=== PATIENT | male | born 1965 | race Caucasian/White ===

== ENCOUNTER 2021-11-04 15:50 | Inpatient (IN) ==
[2021-11-04 16:38] LABS: Basophils # (auto) 0.04 K/uL (0-0.2); Basophils % (auto) 0.3 %; Eosinophils # (auto) 0.08 K/uL (0-0.50); Eosinophils % (auto) 0.6 %; Hematocrit (blood only) 46.2 % (40.1-51.0); Hemoglobin 15.2 g/dl (14.0-18.0); Immature Granulocytes # (auto) 0.06 K/uL (0.00-0.02); Immature Granulocytes % (auto) 0.5 %; Lymphocytes # (auto) 1.44 K/uL (1.2-3.4); Lymphocytes % (auto) 10.8 %; Mean Corpuscular Hgb Conc 32.9 g/dL (32.0-36.0); Mean Corpuscular Volume 91.1 fL (80.0-100.0); Mean Platelet Volume 9.8 fL (9.4-12.4); Monocytes # (auto) 0.72 K/uL (0.24-0.82); Monocytes % (auto) 5.4 %; Neutrophils # (auto) 10.97 K/uL (1.4-6.5); Neutrophils % (auto) 82.4 %; Platelet Count 335 K/uL (130-400); RDW Standard Deviation 46.7 fL (36.4-46.3); Red Blood Count 5.07 M/uL (4.63-6.08); White Blood Count 13.31 K/ul (4.8-10.8)
[2021-11-04 17:04] LABS: Albumin Globulin Ratio 1.2 (0.9-2); Albumin Level 4.3 gm/dl (3.4-5.0); BUN Creatinine Ratio 15.1 (10-20); Bilirubin,Total 0.7 mg/dl (0.2-1.0); Calcium 9.4 mg/dl (8.5-10.1); Creatinine Clr Calc Pharmacy 114.2 ml/min; Est GFR (African American) 106.7 ml/min; Est GFR (Non-African American) 92.1 ml/min; Globulin 3.5 gm/dl (2.5-4.0); Potassium 3.8 mmol/L (3.5-5.1); Total Protein 7.8 gm/dl (6.0-8.3)
[2021-11-04] MEDS ORDERED: MoRPHine SULFATE 4 MG/ML 1 ML CARP\\VIAL IV STA ×2 (19:15→21:50)
[2021-11-04] MEDS ORDERED: SODIUM CHLORIDE 0.9% 1000ML 1,000 ML IV ONE (19:15)
[2021-11-04] MEDS ORDERED: ONDANSETRON INJ 2 MG/ML 2 ML VIAL IV STA ×2 (19:15→22:06)
--- NOTE | 2021-11-04 19:31 | Emergency Department Note ---
Impression & Plan Abdominal pain, Acute cholecystitis, Leukocytosis ED Provider Note NAME: SARAVANAN DANIELS AGE: 56 SEX: M : 1965 ARRIVES VIA: Walk-In INFORMANT: Patient ED PROVIDER(S): Rc Go DO CHIEF COMPLAINT: abdominal pain HPI: Patient is a 56-year-old male who presents ER for lower abdominal pain associate with nausea, vomiting this morning. Started after he ate a chicken salad at [employer] last night. Pain is an 8 out of 10. Denies any dysuria, urgency, or frequency. No previous abdominal pains. No other exacerbating or remitting factors. He has not been eating and drinking secondary to the pain and nausea. ROS: See above HPI for pertinent positives & negatives. A total of 10 systems reviewed and were otherwise negative. PAST MEDICAL HISTORY:See Below PAST SURGICAL HISTORY:See Below FAMILY HISTORY:See Below SOCIAL HISTORY:See Below HOME MEDICATIONS:See Below ALLERGIES:See Below VITALS:See Below PHYSICAL EXAMINATION: GENERAL: Sitting up in bed, alert, well appearing, well nourished, no distress, non-toxic EYE EXAM: normal conjunctiva. OROPHARYNX: no exudate, no erythema, lips, buccal mucosa, and tongue normal and mucous membranes are moist NECK: supple, no nuchal rigidity, no adenopathy, non-tender LUNGS: Clear to auscultation. Normal chest wall mechanics HEART: no murmurs, S1 normal and S2 normal ABDOMEN: abdomen soft, diffuse tenderness, normo-active bowel sounds, no masses, no rebound or guarding. UPPER EXTREMITIES: upper extremities are grossly normal. LOWER EXTREMITIES: No pitting edema. NEURO EXAM: Normal sensorium, cranial nerves II-XII grossly intact, normal speech, no gross weakness of arms, no gross weakness of legs. MEDICAL DECISION MAKING: Patient is a 56-year-old male who presents ER for abdominal pain. IV was established blood work was obtained. Labs show a leukocytosis of 13,000. No significant anemia. BMP on LFTs bilirubin was unremarkable. UA was clean. Did show ketones suggesting dehydration. CT abdomen pelvis confirms acute cholecystitis. He was given IV fluids and 2 doses of morphine as well as IV Zofran. Discussed with Dr. Khanna for further evaluation and admission. Triage Nursing notes reviewed. Limited review of prior medical records performed Vital Signs: reviewed and remarkable for no significant abnormalities Differential diagnosis: Differential diagnoses includes but is not limited to gastritis, peptic ulcer disease, GERD, gallbladder disease, pancreatitis, small bowel obstruction, acute coronary syndrome, pericarditis, ischemic bowel, irritable bowel disease, irritable bowel syndrome, appendicitis, diverticulitis, malignancy, hernia, urinary tract infection, torsion, perforation, trauma, infectious. ER treatment provided: See below Diagnostics interpreted by me: ECG: none Cardiac Monitoring: An order was placed for continuous cardiac monitoring. The monitor shows a rate of 80 with sinus rhythm. Laboratory studies: As stated above and show below. Imaging studies: CT abd/pelvis is unremarkable Consultation(s): As described above discussed with Dr. Khanna for further evaluation and admission Procedures: none Critical Care: None Past Med/Surg History Social History Smoking Status: Current every day smoker Feels Safe at Home: Yes Allergies Allergies Allergy/AdvReac Type Severity Reaction Status Date / Time No Known Allergies Allergy Mild Unverified 11/04/21 19:25 Home Meds Home Medications Medication Instructions Recorded Confirmed No Known Home Medications 11/04/21 11/04/21 Results & Data (ED) Vital Signs Vital Signs - 24 hr 11/04/21 15:52 11/04/21 19:51 Temperature 36.6 C Temperature Source Temporal Artery Scan Pulse Rate 79 Respiratory Rate 18 Respiratory Effort / Characteristics Non-Labored Respiratory Depth Normal Blood Pressure 154/94 H Blood Pressure Mean 114 Pulse Oximetry 96 Oxygen Delivery Method Room Air Sepsis Recent Fever Within 48 Hours No Sepsis New/Unexplained Change in Mental Status No Sepsis Action Taken by Nursing No Action Required Laboratory Data Result diagrams: 11/04/21 16:19 11/04/21 16:19 Lab Results 11/04/21 11/04/21 11/04/21 Range/Units 16:19 16:19 20:40 WBC 13.31 H (4.8-10.8) K/ul RBC 5.07 (4.63-6.08) M/uL Hgb 15.2 (14.0-18.0) g/dl Hct 46.2 (40.1-51.0) % MCV 91.1 (80.0-100.0) fL MCH 30.0 (25.0-34.0) pg MCHC 32.9 (32.0-36.0) g/dL RDW Std Deviation 46.7 H (36.4-46.3) fL RDW Coeff of Bisi 14.0 (11.5-14.5) % Plt Count 335 (130-400) K/uL MPV 9.8 (9.4-12.4) fL Immature Gran % (Auto) 0.5 % Neut % (Auto) 82.4 % Lymph % (Auto) 10.8 % [place] % (Auto) 5.4 % Eos % (Auto) 0.6 % Baso % (Auto) 0.3 % Neut # (Auto) 10.97 H (1.4-6.5) K/uL Lymph # (Auto) 1.44 (1.2-3.4) K/uL [place] # (Auto) 0.72 (0.24-0.82) K/uL Eos # (Auto) 0.08 (0-0.50) K/uL Baso # (Auto) 0.04 (0-0.2) K/uL Immature Gran # (Auto) 0.06 H (0.00-0.02) K/uL Sodium 138 (136-145) mmol/L Potassium 3.8 (3.5-5.1) mmol/L Chloride 104 (98-107) mmol/L Carbon Dioxide 26 (21-32) mmol/L Anion Gap 8 (3-11) BUN 14 (6-23) mg/dl Creatinine 0.93 (0.6-1.4) mg/dl Est Cr Clr Drug Dosing 114.2 ml/min Est GFR ( Amer) 106.7 ml/min Est GFR (Non-Af Amer) 92.1 ml/min BUN/Creatinine Ratio 15.1 (10-20) Glucose 99 (70-99(Fasting)) mg/dl Calcium 9.4 (8.5-10.1) mg/dl Total Bilirubin 0.7 (0.2-1.0) mg/dl AST 25 (13-39) U/L ALT 31 (7-52) U/L Alkaline Phosphatase 93 (34-104) U/L Total Protein 7.8 (6.0-8.3) gm/dl Albumin 4.3 (3.4-5.0) gm/dl Globulin 3.5 (2.5-4.0) gm/dl Albumin/Globulin Ratio 1.2 (0.9-2) Urine Color Yellow Urine Appearance Clear (Clear) Urine pH 7.0 (4.5-7.5) Ur Specific [place] 1.008 (1.000-1.030) Urine Protein Negative (Negative) Urine Glucose (UA) Negative (Negative) Urine Ketones 1+ H (Negative) Urine Blood Negative (Negative) Urine Nitrite Negative (Negative) Urine Bilirubin Negative (Negative) Urine Urobilinogen Negative (Negative) Ur Leukocyte Esterase Negative (Negative) Administered Medications Discontinued Medications Sodium Chloride (Nss 1000ml) 1,000 mls @ 999 mls/hr IV .Q1H1M ONE Stop: 11/04/21 20:15 Last Admin: 11/04/21 19:31 Dose: 999 mls/hr Documented By: RACHELLE Ioversol (Optiray 320 100ml) 92 ml IV ONCE ONE Stop: 11/04/21 20:30 Last Admin: 11/04/21 20:29 Dose: 92 ml Documented By: ISREAL Morphine Sulfate (Morphine Sulfate 4 Mg/Ml 1 Ml Carp\Vial) 4 mg IV NOW STA Stop: 11/04/21 19:16 Last Admin: 11/04/21 19:30 Dose: 4 mg Documented By: RACHELLE Ondansetron HCl (Ondansetron Inj 2 Mg/Ml 2 Ml Vial) 4 mg IV NOW STA Stop: 11/04/21 19:16 Last Admin: 11/04/21 19:30 Dose: 4 mg Documented By: RACHELLE Imaging Data Radiologist's Impression: Abdomen/Pelvis CT 11/04/21 00:00 CT OF THE ABDOMEN AND PELVIS WITH CONTRAST CLINICAL HISTORY: Lower abdominal pain. COMPARISON STUDY: None. TECHNIQUE: Following IV administration of 92 mL of Optiray, axial images of the abdomen and pelvis were obtained from the lung bases to the proximal femurs. Images were reviewed in the axial, sagittal, and coronal planes. IV contrast was administered without complication. Automated exposure control was utilized for the study. A dose lowering technique was utilized adhering to the principles of ALARA. CT DOSE: 1017.88 mGy.cm FINDINGS: No pneumatosis, free air or portal venous gas is present. A small hiatal hernia is present. There is mild intrahepatic biliary ductal dilatation. Caliber of the common bile duct is normal. 2.1 cm gallstone within the gallbladder neck is noted. There is moderate gallbladder wall thickening. The gallbladder is distended. There is mild stranding within the juan carlos hepatis. The spleen, adrenal glands, kidneys and pancreas are unremarkable. There is no evidence for a bowel obstruction. The appendix is normal. Trace fluid within pelvis is noted. No lymphadenopathy is present. There is apparent mild stranding adjacent to several vessels within the omentum. IMPRESSION: 1. Findings highly suggestive of acute cholecystitis. 2. Mild intrahepatic biliary ductal dilatation with normal caliber common bile duct. This could be correlated with liver function tests. 3. No bowel obstruction. No bowel wall thickening. Normal appendix. 4. Apparent mild stranding adjacent to several vessels within the omentum. This finding may be chronic and is of questionable significance. A follow-up CT of the abdomen in 6 months to ensure stability is recommended. ACT 112: Negative or not required by law. Electronically signed by: Nicholas Eisenberg M.D. 11/04/2021 8:50 PM Discharge Plan Visit Data Chief Complaint: Illness Stated Complaint: POSSIBLE FOOD POISONING ED Provider: Rc Go Discharge Problem: Abdominal pain, Acute cholecystitis, Leukocytosis Forms Stand Alone Forms: My [facility] Prescriptions Prescriptions: No Action No Known Home Medications Referrals Referrals: PCP,NO [Primary Care Provider] -
[2021-11-04] MEDS ORDERED: OPTIRAY 320 100ml IV ONE (20:29)
--- NOTE | 2021-11-04 20:52 | CT Scan Report ---
CT OF THE ABDOMEN AND PELVIS WITH CONTRAST CLINICAL HISTORY: Lower abdominal pain. COMPARISON STUDY: None. TECHNIQUE: Following IV administration of 92 mL of Optiray, axial images of the abdomen and pelvis we re obtained from the lung bases to the proximal femurs. Images were reviewed in the axial, sagittal, and coronal planes. IV contrast was administered without complication. Automated exposure control wa s utilized for the study. A dose lowering technique was utilized adhering to the principles of ALARA . CT DOSE: 1017.88 mGy.cm FINDINGS: No pneumatosis, free air or portal venous gas is present. A small hiatal hernia is present. There is mild intrahepatic biliary ductal dilatation. Caliber of the common bile duct is normal. 2.1 cm gallstone within the gallbladder neck is noted. There is moderate gallbladder wall thickening. Th e gallbladder is distended. There is mild stranding within the juan carlos hepatis. The spleen, adrenal gla nds, kidneys and pancreas are unremarkable. There is no evidence for a bowel obstruction. The appendi x is normal. Trace fluid within pelvis is noted. No lymphadenopathy is present. There is apparent mil d stranding adjacent to several vessels within the omentum. IMPRESSION: 1. Findings highly suggestive of acute cholecystitis. 2. Mild intrahepatic biliary ductal dilatation with normal caliber common bile duct. This could be co rrelated with liver function tests. 3. No bowel obstruction. No bowel wall thickening. Normal appendix. 4. Apparent mild stranding adjacent to several vessels within the omentum. This finding may be chroni c and is of questionable significance. A follow-up CT of the abdomen in 6 months to ensure stability is recommended. ACT 112: Negative or not required by law. Electronically signed by: Nicholas Eisenberg M.D. 11/04/2021 8:50 PM
[2021-11-04 21:19] LABS: Appearance Urine Clear (Clear); Bilirubin Urine Negative (Negative); Blood Urine Negative (Negative); Color Urine Yellow; Glucose Urine UA Negative (Negative); Ketones Urine 1+ (Negative); Leukocyte Esterase Urine Negative (Negative); Nitrite Urine Negative (Negative); Protein Urine Negative (Negative); Specific Gravity Urine 1.008 (1.000-1.030); Urobilinogen Urine Negative (Negative)
--- NOTE | 2021-11-04 22:04 | History & Physical Report ---
Date of Service November 04, 2021 Assessment & Plan (1) Acute cholecystitis: Plan: IVF IV abx will need lap scottie this hospitalization Present on Admission?: Yes History of Present Illness Primary Care Provider: NO PCP This is a 56-year-old male who presented ED for abdominal pain associated with nausea and vomiting which began today. He denies fever or chills. He has no dysuria or other urinary symptoms. He has never had the pain previously. He has not been eating and drinking secondary to the pain and nausea. A CT scan shows acute cholecystitis. Allergies Allergy/AdvReac Type Severity Reaction Status Date / Time No Known Allergies Allergy Mild Unverified 11/04/21 19:25 Home Medications Medication Instructions Recorded Confirmed Type No Known Home Medications 11/04/21 11/04/21 History Past Med/Surg History Social History Smoking Status: Current every day smoker Feels Safe at Home: Yes Review of Systems Constitutional: + anorexia; no fever, no chills and no sweats Eyes: no problem reported Ear, Nose, Mouth, Throat: no problem reported Respiratory: no cough and no dyspnea Cardiovascular: no chest pain Gastrointestinal: + abdominal pain, + nausea and + vomiting; no change in bowel habits Genitourinary: no dysuria Musculoskeletal: no back pain and no neck pain Integumentary: no rash and no lesions Neurologic: no localized weakness and no generalized weakness Psychiatric: no behavioral changes Physical Exam Constitutional: WD/WN, vitals as above Eyes: PERRL, conjunctivae normal, anicteric sclerae ENMT: external ear and nose normal, oropharynx normal Neck: trachea midline Respiratory: normal respiratory effort, lungs clear to auscultation Cardiovascular: RRR, no murmur, no edema Gastrointestinal (Abdomen): Inspection/Auscultation: abdomen normal to inspection and normal bowel sounds; abdomen not distended and no abdominal surgical scar Percussion/Palpation: + abdomen tender and abdomen soft; no guarding and abdomen not rigid Musculoskeletal: Head/Neck/Chest: normocephalic and head atraumatic Skin: no rashes, warm and dry Results & Data Results & Data ([facility]) Vital Signs (Past 12 Hours) Vital Signs Temp Pulse Resp BP Pulse Ox O2 Del Method 11/04/21 15:52 36.6 C 79 18 154/94 H 96 Room Air Diagnostic Findings CT OF THE ABDOMEN AND PELVIS WITH CONTRAST CLINICAL HISTORY: Lower abdominal pain. COMPARISON STUDY: None. TECHNIQUE: Following IV administration of 92 mL of Optiray, axial images of the abdomen and pelvis were obtained from the lung bases to the proximal femurs. Images were reviewed in the axial, sagittal, and coronal planes. IV contrast was administered without complication. Automated exposure control was utilized for the study. A dose lowering technique was utilized adhering to the principles of ALARA. CT DOSE: 1017.88 mGy.cm FINDINGS: No pneumatosis, free air or portal venous gas is present. A small hiatal hernia is present. There is mild intrahepatic biliary ductal dilatation. Caliber of the common bile duct is normal. 2.1 cm gallstone within the gallbladder neck is noted. There is moderate gallbladder wall thickening. The gallbladder is distended. There is mild stranding within the juan carlos hepatis. The spleen, adrenal glands, kidneys and pancreas are unremarkable. There is no evidence for a bowel obstruction. The appendix is normal. Trace fluid within pelvis is noted. No lymphadenopathy is present. There is apparent mild stranding adjacent to several vessels within the omentum. IMPRESSION: 1. Findings highly suggestive of acute cholecystitis. 2. Mild intrahepatic biliary ductal dilatation with normal caliber common bile duct. This could be correlated with liver function tests. 3. No bowel obstruction. No bowel wall thickening. Normal appendix. 4. Apparent mild stranding adjacent to several vessels within the omentum. This finding may be chronic and is of questionable significance. A follow-up CT of the abdomen in 6 months to ensure stability is recommended. Code Status & VTE Plan Code Status Full Code VTE Prophylaxis Plan VTE Prophylaxis will be ordered: Yes
[2021-11-04] MEDS ORDERED: IBUPROFEN 200 MG TAB PO PRN (22:06)
[2021-11-04] MEDS ORDERED: MoRPHine SULFATE 2 MG/ML CARP IV PRN (22:06)
[2021-11-04] MEDS ORDERED: MoRPHine SULFATE 4 MG/ML 1 ML CARP\\VIAL IV PRN (22:06)
[2021-11-04] MEDS ORDERED: oxyCODONE/ACETAMINOPHEN 5mg/325mg TAB PO PRN ×2 (22:06)
[2021-11-04] MEDS ORDERED: ACETAMINOPHEN 325 MG TAB PO PRN (22:06)
[2021-11-04] MEDS ORDERED: PIPERACILLIN/TAZOBACTAM 4.5 GM/120 ML BAG IV STA (22:17)
[2021-11-05] MEDS: LACTATED RINGER'S 1,000 ML IV SCH ×3 (00:18→21:38)
[2021-11-05] MEDS: PIPERACILLIN/TAZOBACTAM 3.375 GM in DEXTROSE 5% 100 ML IV SCH ×3 (03:52→19:11)
[2021-11-05] MEDS ORDERED: ONDANSETRON INJ 2 MG/ML 2 ML VIAL IV PRN (12:49)
[2021-11-05] MEDS ORDERED: fentaNYL citrate 100 MCG/2 ML VIAL IV PRN (12:49)
[2021-11-05] MEDS ORDERED: KETOROLAC 30 MG/ML VIAL IV PRN (12:49)
[2021-11-05] MEDS ORDERED: ATROPINE SULFATE 0.1 MG/ML 10ML SYR IV PRN (12:49)
[2021-11-05] MEDS ORDERED: PROMETHAZINE HCL 6.25 MG in SODIUM CHLORIDE 0.9% 50 ML IV PRN (12:49)
--- NOTE | 2021-11-05 12:49 | Anesthesiology Consultation ---
Date of Service November 05, 2021 Assessment & Plan (1) Encounter for pre-operative examination: Chart Review Chart Review: Acceptable Risk for Surgery History Surgery Operation Date: 11/05/21 13:15 Proposed Procedures p Laparoscopic Cholecystectomy - Prince Brandt MD Height/Weight Height: 6 ft 1 in Weight: 103.4 kg Allergies Allergy/AdvReac Type Severity Reaction Status Date / Time No Known Allergies Allergy Mild Unverified 11/04/21 19:25 Medications Home Medications Medication Instructions Recorded Confirmed Last Taken No Known Home Medications 11/04/21 11/04/21 Unknown Active Medications Generic Name Dose Route Start Last Admin Trade Name Freq PRN Reason Stop Dose Admin Lactated Ringer's 1,000 mls @ 100 mls/hr 11/04/21 22:15 11/05/21 10:59 Lr IV 12/04/21 22:14 100 mls/hr .Q10H JEOVANY Administration Piperacillin Sod/Tazobactam 115 mls @ 28.75 mls/hr 11/05/21 04:00 11/05/21 07:25 Sod 3.375 gm/ Dextrose IV 11/15/21 03:59 Infused Q8H JEOVANY Infusion Protocol Morphine Sulfate 4 mg 11/04/21 22:06 11/05/21 00:27 Morphine Sulfate 4 Mg/Ml 1 Ml Carp\Vial IV 11/18/21 22:05 4 mg Q3H PRN Administration Pain (6,7,8,9,10) NPO Date Last Intake of Fluids: 11/04/21 Time Last Intake of Fluids: 23:59 Date Last Intake of Solids: 11/04/21 Time Last Intake of Solids: 23:59 Past Medical History Medical History Dental abscess Smoker Past Surgical History Surgical History (Updated 11/05/21 @ 12:48 by Gerard Miles MD) No pertinent past surgical history Social History Smoking Status: Current every day smoker tobacco type: cigarettes Do You Dip or Chew Tobacco: No Hx Alcohol Use: Yes Alcohol type: beer alcohol intake frequency: holidays/special occasions only Hx Substance Use: No Physical Exam Vital Signs Last Vital Signs Temp 37 C 11/05/21 06:29 Pulse 87 11/05/21 06:29 Resp 18 11/05/21 06:29 BP 130/79 11/05/21 06:29 Pulse Ox 95 11/05/21 06:29 O2 Del Method 11/05/21 06:29 Testing Laboratory Results 11/04/21 16:19 11/04/21 16:19 Urine Color Yellow 11/04/21 20:40 Urine Appearance Clear (Clear) 11/04/21 20:40 Urine pH 7.0 (4.5-7.5) 11/04/21 20:40 Ur Specific [place] 1.008 (1.000-1.030) 11/04/21 20:40 Urine Protein Negative (Negative) 11/04/21 20:40 Urine Glucose (UA) Negative (Negative) 11/04/21 20:40 Urine Ketones 1+ (Negative) H 11/04/21 20:40 Urine Nitrite Negative (Negative) 11/04/21 20:40 Ur Leukocyte Esterase Negative (Negative) 11/04/21 20:40
[2021-11-05] MEDS ORDERED: PROPOFOL IV EMULSION 10 MG/ML 20 ML VIAL IV ONE (14:18)
[2021-11-05] MEDS ORDERED: fentaNYL citrate 100 MCG/2 ML VIAL ONE (14:18)
[2021-11-05] MEDS ORDERED: LARYING-O-JET KIT (LTA) ONE (14:18)
[2021-11-05] MEDS ORDERED: ONDANSETRON INJ 2 MG/ML 2 ML VIAL ONE (14:18)
[2021-11-05] MEDS ORDERED: NEOSTIGMINE METHYLSULFATE 1 MG/ML 10ML VIAL ONE (14:18)
[2021-11-05] MEDS ORDERED: GLYCOPYRROLATE 0.2 MG/ML VIAL ONE (14:18)
[2021-11-05] MEDS ORDERED: MIDAZOLAM HCL 1 MG/ML 2ML VIAL ONE (14:18)
[2021-11-05] MEDS ORDERED: LIDOCAINE 2% MPF LOCAL 5 ML VIAL INFIL ONE (14:18)
[2021-11-05] MEDS ORDERED: ROCURONIUM BROMIDE 10 MG/ML 5 ML VIAL IV ONE ×3 (14:18→16:14)
[2021-11-05] MEDS ORDERED: DEXAMETHASONE SOD INJ 4 MG/ML VIAL ONE (14:18)
[2021-11-05] MEDS ORDERED: BUPIVACAINE 0.5 % 5 MG/1 ML MPF 30ML VIAL ONE (14:45)
[2021-11-05] MEDS ORDERED: LIDOCAINE 1% LOCAL 20 ML VIAL ONE (14:45)
[2021-11-05] MEDS ORDERED: BACITRACIN OINT 15 GM TUBE ONE (14:45)
--- NOTE | 2021-11-05 14:51 | History & Physical Bridge Note ---
Date of Service November 05, 2021 History & Physical Bridge Note I have examined the patient, reviewed the History & Physical and in the interval since the performance of the History & Physical I have noted the following changes of clinical significance: no changes noted
[2021-11-05] MEDS ORDERED: KETOROLAC 30 MG/ML VIAL ONE (15:29)
--- NOTE | 2021-11-05 16:35 | Post Operative Brief Note ---
Immediate Post Op Note v1 Date of Surgery November 05, 2021 Pre & Post Diagnosis Operation Date: 11/05/21 13:15 Pre-Op Diagnosis: acute CHOLECYSTITIS, cholelithiasis Post-Op Diagnosis: acute CHOLECYSTITIS, cholelithiasis I identified the patient and participated in the time-out.: Yes Procedure Operation Date: 11/05/21 13:15 Actual Procedures p Laparoscopic Cholecystectomy(Not Applicable) - Prince Brandt MD Surgeon Prince Brandt MD Lamp Cleaner surgical clinical reviewer Estimated Blood Loss 20 Findings Consistent with Post-Op Diagnosis significant inflammation on gallbladder wall, acute cholecystitis, Fluids 1000ml Specimens gallbladder Anesthesia Type General Complications none Disposition Accompanied Patient To Recovery: Yes
[2021-11-05] MEDS ORDERED: SUGAMMADEX SODIUM 200 MG/2 ML VIAL IV ONE (16:48)
--- NOTE | 2021-11-05 17:40 | Anesthesiology Progress Note ---
Date of Service November 05, 2021 Anesthesia Post Procedure Vital Signs Vital Signs: Temp Pulse Pulse Resp BP Pulse Ox O2 Del Method 11/05/21 17:25 71 19 128/78 95 Nasal Cannula 11/05/21 17:15 36.4 C L 73 16 127/75 94 Nasal Cannula 11/05/21 17:05 79 20 122/72 97 Oxymask 11/05/21 16:55 76 20 110/64 97 Oxymask 11/05/21 16:47 37 C 93 H 16 120/70 96 Oxymask 11/05/21 14:24 36.9 C 87 18 136/99 96 Room Air 11/05/21 06:29 37 C 87 18 130/79 95 Room Air 11/05/21 00:10 36.7 C 76 14 147/88 H 95 Room Air 11/04/21 21:00 98 O2 Flow Rate 11/05/21 17:25 2 11/05/21 17:15 2 11/05/21 17:05 12 11/05/21 16:55 12 11/05/21 16:47 12 11/05/21 14:24 11/05/21 06:29 11/05/21 00:10 11/04/21 21:00 Pain Intensity Abdomen: Pain Intensity: 5 Head: Pain Intensity: 2 Transfer of Care Handoff Completed per policy Notes Mental Status: alert / awake / arousable and participated in evaluation Patient Amnestic to Procedure: Yes Nausea / Vomiting: adequately controlled Pain: adequately controlled Airway Patency, RR, SpO2: stable & adequate BP & HR: stable & adequate Hydration State: stable & adequate Anesthetic Complications: no major complications apparent and Pt Satisfied with anesthetic care
--- NOTE | 2021-11-05 20:56 | Operative Report (OR) ---
DATE OF PROCEDURE: 11/05/2021 PREOPERATIVE DIAGNOSES: Acute cholecystitis, cholelithiasis. POSTOPERATIVE DIAGNOSES: Acute cholecystitis, cholelithiasis. OPERATION: Laparoscopic cholecystectomy. SURGEON: Prince Brandt MD. ANESTHESIA: General. ESTIMATED BLOOD LOSS: About 20 mL. FINDINGS: Significant inflammation on the gallbladder wall, diagnostic of acute cholecystitis. COMPLICATIONS: None. INDICATIONS FOR THE PROCEDURE: This is a 56-year-old gentleman who was admitted to the hospital for acute cholecystitis, cholelithiasis. I recommended to do laparoscopic cholecystectomy, possible open, possible cholangiogram. I did talk to the patient about the benefit, risk, alternate procedure. I indicated the risks may include, but not limited to, such as bleeding, infection, injury to other organs, incisional hernia, myocardial infarction, DVT, stroke, even and may need ERCP. The patient understands. He signed informed consent and I answered all questions. DETAILS OF PROCEDURE: After we identified the patient and verified the procedure, we brought the patient to the OR, put the patient in the supine position on the OR table. The patient received SCD on bilateral legs to prevent DVT. Also, patient received IV 3.375 grams of Zosyn for prophylactic antibiotic. The patient received general anesthesia without difficulty. The abdomen was prepped and draped in routine sterile fashion. After timeout, I injected the local anesthesia by using 1% lidocaine mixed with 0.5% Marcaine just above the umbilicus, then I made a small incision just above umbilicus, opened fascia, opened peritoneum. Under direct vision, put a Rduolph trocar in, connected to CO2 to create pneumoperitoneum, flow rate at 6 liters per minute, pressure not more than 14 mmHg. Once we got a nice pneumoperitoneum, we put a camera in, looked around the abdomen, it showed normal finding on the liver; however, the gallbladder showed significant distention with gallbladder inflammation and edema on the gallbladder wall, confirming the diagnosis of acute cholecystitis. Then, we used a larger needle to decompress the gallbladder first. Then, we used the grasper to hold the base of gallbladder, put in the direction to the diaphragm, another grasper to hold the pouch of gallbladder, put a lateral. At this moment, we found the patient had a 2 x 2 cm large stone stuck in the gallbladder cyst neck. At this moment, we identified the cystic duct and I mobilized it. Then, I used two 10 mm metal clips on the proximal cystic duct, one on the distal cystic duct, then used a scissor for transection of cystic duct; rechecked, no bile leak. The cystic artery was identified and mobilized. I put two 5 mm metal clips on the proximal cystic artery, one on the distal cystic artery, then used a scissor for transection of cystic artery; rechecked, no active bleeding. Then, we used the Bovie to take down gallbladder from the liver bed; rechecked, no active bleeding, no bile leak from liver bed. Then, we removed gallbladder through the catch bag. Then, we reinserted the Rudolph trocar in, connected to CO2 to create pneumoperitoneum, again looked around the abdomen, no active bleeding, no bile leak from liver bed. Then, we removed all trocars under direct vision. No active bleeding from the trocar site. Pneumoperitoneum was released, then I closed the umbilical incision fascial layer by using 0 Vicryl [id number] x2, closed subcutaneous layer by using 2-0 Vicryl interruptedly, closed skin by using 4-0 Vicryl continuous running, closed the epigastric incision fascial layer by using 0 Vicryl [id number] x2, closed subcutaneous layer by using 2-0 Vicryl interruptedly, closed skin by using 4-0 Vicryl interruptedly, closed another two 5 mm trocar site of skin only by using 4-0 Vicryl. Then, we put the dressing on. The patient tolerated the procedure well. All instrument, needle and sponge counts were correct x2 at the end of the case. The patient was transferred to recovery room in stable condition. The specimen was sent to pathology. After the procedure, I did talk to the patient about the OR finding and the procedure we did, he understands. I answered all questions. Job ID: [id number] [facility]
[2021-11-06] MEDS: PIPERACILLIN/TAZOBACTAM 3.375 GM in DEXTROSE 5% 100 ML IV SCH ×2 (04:14→12:36)
[2021-11-06] MEDS: LACTATED RINGER'S 1,000 ML IV SCH (04:17)
[2021-11-06 05:51] LABS: Hematocrit (blood only) 43.2 % (40.1-51.0); Immature Granulocytes # (auto) 0.05 K/uL (0.00-0.02); Immature Granulocytes % (auto) 0.4 %; Lymphocytes # (auto) 0.92 K/uL (1.2-3.4); Lymphocytes % (auto) 7.3 %; Mean Corpuscular Hemoglobin 30.3 pg (25.0-34.0); Mean Corpuscular Hgb Conc 32.4 g/dL (32.0-36.0); Mean Corpuscular Volume 93.5 fL (80.0-100.0); Mean Platelet Volume 9.8 fL (9.4-12.4); Monocytes # (auto) 0.58 K/uL (0.24-0.82); Monocytes % (auto) 4.6 %; Neutrophils # (auto) 11.06 K/uL (1.4-6.5); Neutrophils % (auto) 87.7 %; Platelet Count 283 K/uL (130-400); RDW Coefficient of Variation 14.1 % (11.5-14.5); RDW Standard Deviation 48.2 fL (36.4-46.3); Red Blood Count 4.62 M/uL (4.63-6.08); White Blood Count 12.61 K/ul (4.8-10.8)
[2021-11-06 06:22] LABS: Albumin Globulin Ratio 1.1 (0.9-2); Albumin Level 3.5 gm/dl (3.4-5.0); BUN Creatinine Ratio 14.4 (10-20); Bilirubin,Total 0.9 mg/dl (0.2-1.0); Calcium 8.8 mg/dl (8.5-10.1); Creatinine Clr Calc Pharmacy 117.1 ml/min; Est GFR (Non-African American) 95.8 ml/min; Globulin 3.3 gm/dl (2.5-4.0); Potassium 3.9 mmol/L (3.5-5.1); Total Protein 6.8 gm/dl (6.0-8.3)
--- NOTE | 2021-11-06 11:46 | Surgery Progress Note ---
Date of Service November 06, 2021 Assessment & Plan (1) Acute cholecystitis: Plan: IVF IV abx will need lap scottie this hospitalization 11/06/2021 11:45AM, F/U S/P lap scottie, POD 1 pt is doing fine, tolerated diet, no fever, pt wants to go home today, post-op care instruction was given, F/U 2 weeks, Admission and Anticipated Discharge Date Admission Date: November 04, 2021 Review of Systems Constitutional: + anorexia; no fever, no chills and no sweats Eyes: no problem reported Ear, Nose, Mouth, Throat: no problem reported Respiratory: no cough and no dyspnea Cardiovascular: no chest pain Gastrointestinal: + abdominal pain, + nausea and + vomiting; no change in bowel habits Genitourinary: no dysuria Musculoskeletal: no back pain and no neck pain Integumentary: no rash and no lesions Neurologic: no localized weakness and no generalized weakness Psychiatric: no behavioral changes Physical Exam Constitutional: WD/WN, vitals as above Eyes: PERRL, conjunctivae normal, anicteric sclerae Neck: trachea midline, no thyromegaly Respiratory: normal respiratory effort, lungs clear to auscultation Cardiovascular: RRR, no murmur, no edema Gastrointestinal (Abdomen): soft, mild tenderness at incision site, no rebound pain, no distend, BS +, all incisions heal well, no redness, Musculoskeletal: no cyanosis or clubbing, extremities motor strength 5/5 Neurologic: patellar DTR's 2+ bilat, sensation intact Psychiatric: A+Ox3, euthymic affect Results & Data ([facility]) Vital Signs (Past 12 Hours) Vital Signs Temp Pulse Resp BP Pulse Ox O2 Del Method 11/06/21 06:41 36.6 C 73 18 145/93 H 95 Room Air 11/06/21 03:34 36.5 C 68 18 128/84 93 Room Air
--- NOTE | 2021-11-06 12:39 | Discharge Summary (DS) ---
DATE OF ADMISSION: 11/05/2021 DATE OF DISCHARGE: 11/06/2021. ADMISSION DIAGNOSES: Acute cholecystitis, cholelithiasis. DISCHARGE DIAGNOSES: Acute cholecystitis, cholelithiasis. OPERATION: Laparoscopic cholecystectomy. SURGEON: Prince Brandt MD. DETAILS OF DISCHARGE SUMMARY: This is a 56-year-old gentleman who presented to the ED with acute abdominal pain and the patient had a CT scan diagnosis of acute cholecystitis with gallstones. I took the patient to the OR, we did laparoscopic cholecystectomy. The patient tolerated the procedure well. After the procedure, the patient was transferred to recovery room and later on transferred to regular floor. The patient is doing fine. He tolerates a diet and no significant abdominal pain. No fever. PHYSICAL EXAMINATION: VITAL SIGNS: Temperature is 36.6, respiratory rate 18, heart rate 73, blood pressure 145/93, O2 saturation 95% on room air. GENERAL: The patient is alert, awake, oriented x3. HEENT: Within normal limitation. NEUROLOGIC: Intact. NECK: No JVD. CHEST: Bilateral lung sounds clear. HEART: Normal S1 and S2. No murmur. ABDOMEN: Soft, mild tenderness on the incision site. No rebound pain, no distention. Bowel sounds positive. All incisions intact. No redness. EXTREMITIES: No edema. The patient wanted to go home. We gave the patient postop care instruction and the patient understands. I answered all questions. I will follow up the patient in two weeks. Job ID: [id number] [facility], [place]
== END 2021-11-06 14:25 | disposition home or self-care (01) | DRG 419 ==
LOC: ED 15:50 → 3N 22:56
DX: K81.0 Acute cholecystitis